=== PATIENT | female | born 1970 | race Caucasian/White ===

== ENCOUNTER 2020-02-08 05:38 | Emergency (ER) | payer BC ==
[2020-02-08] MEDS ORDERED: Ketorolac 30 MG/ML SDV IVPUSH ONE (07:17)
[2020-02-08] MEDS ORDERED: Ondansetron 4 MG/2 ML SDV IVPUSH ONE (07:17)
[2020-02-08] MEDS ORDERED: Sodium Chloride 0.9% 1,000 ML IV SCH (07:30)
[2020-02-08] MEDS ORDERED: Ketorolac 30 MG/ML SDV ONE (07:50)
[2020-02-08] MEDS ORDERED: Ondansetron 4 MG/2 ML SDV ONE (07:51)
--- NOTE | 2020-02-08 08:41 | CT ---
DATE OF SERVICE: 02/08/2020 CLINICAL DATA: Pain Unenhanced abdomen and pelvic CT: Multi slice acquisition through the abdomen and pelvis without IV or oral contrast was performed. No priors. There are atelectatic changes in the dependent portion of both lungs. The lung bases are otherwise clear. The heart size is normal. The liver is normal size. There is a 12 mm low-density lesion in the dome of the liver consistent with a benign hepatitic cyst. There is decreased attenuation of the liver adjacent to the falciform ligament consistent with focal fatty infiltration. The liver is otherwise unremarkable. The gallbladder appears normal. The spleen appears normal. The pancreas appears normal. The right and left adrenals appear normal. The right and left kidneys appear normal. No nephrocalcinosis or nephrolithiasis. No hydronephrosis or hydroureter. No evidence of ureterolithiasis. The bladder is partially fluid filled. It appears normal. The appendix is not dilated. No evidence of appendicitis. There is diverticulosis of the colon. No evidence of diverticulitis. No free air. No free fluid. No dilated loops of bowel. No adenopathy. No aortic aneurysm. MTDD
--- NOTE | 2020-02-08 14:22 | ER ---
REASON FOR EMERGENCY ROOM VISIT: Abdominal pain and nausea. HISTORY: This 49-year-old previously healthy woman came in because she is concerned about the possibility of gallstones. She states that she developed "gas pains" in her upper abdomen on . This caused her to double over at times. She took antacids and Gas-X and various other GI type of medicines. At times, she thought there was some heartburn component to it. She describes the pain as a constant ache with random intermittent sharp pains, superimposed, sometimes it seems to penetrate toward the back and shoulders bilaterally. She gets nausea with these onset of sharp pain. She only had 1 emesis since , 4 days ago and that was in the ER this morning. She had loose stools x4 yesterday, but these were not watery and she has not had a bowel movement since last evening. She does state that she had a similar episode that lasted approximately 2 hours and that occurred about 2 weeks ago, but resolved on its own. She did think that her urine looked a little dark at one point, but is cleared on its own. She denies any fever or chills, and her pain is not necessarily related to eating. PAST MEDICAL HISTORY: 1. ADHD. 2. Reactive airway disease. 3. History of hysterectomy for benign disease. MEDICATIONS: Include Adderall and albuterol. ALLERGIES: SULFA. FAMILY HISTORY: Noncontributory. REVIEW OF SYSTEMS: Pertinent positives and negatives. PHYSICAL EXAMINATION: GENERAL: She is calm, alert, and in no acute distress. VITAL SIGNS: She is afebrile. Blood pressure 134/89, heart rate is 73, respiratory rate is 18, O2 sats 98% on room air. HEENT: Head is normocephalic. Normal sclerae. No scleral icterus is noted. Oropharynx is normal. NECK: Supple. No adenopathy. CHEST: Clear to auscultation with good air exchange bilaterally and no wheezes, rhonchi, or rales. CARDIAC: Regular rate without murmur or rub. ABDOMEN: Obese, soft, and nondistended. Bowel sounds are present. She has minimal tenderness to deep palpation in the epigastrium. No hepatosplenomegaly or other palpable masses were noted. EXTREMITIES: Normal pulses. No edema. NEUROLOGIC: Grossly intact. LABORATORY DATA: CBC was within normal limits. She has no leukocytosis. A CMP was normal. She has no liver enzyme elevations. A urinalysis did show 10-20 rbc's per high-powered field with occult blood. A CT scan without contrast was done using a stone protocol and this was negative. There was no evidence of ureterolithiasis or nephrolithiasis. She had no evidence of biliary tract disease or any other significant intraabdominal pathology. Further emergency room course: Prior to the CT scan, she was given Zofran 4 mg IV x1 as well as Toradol 30 mg IV x1. She feels much better and has been almost completely pain free for the past 2 hours. IMPRESSION: Epigastric pain, etiology uncertain. PLAN: We still need to rule out cholelithiasis, even though she has had a normal CT scan. The gallbladder ultrasound is the gold standard in these cases and she certainly still could have that. The next thing to consider would be peptic ulcer disease, should her symptoms persist. We have scheduled her for an ultrasound on . I advised her to continue with antacids if she thinks they help and stay on a bland diet, avoiding fatty or spicy foods. She understands and agrees with this. All questions were answered. She will follow up with her provider after the ultrasound is done. ALEJANDRO /[id number]
== END 2020-02-08 09:15 | disposition home or self-care (01) ==
LOC: LB.ED 05:38
DX: R10.13 Epigastric pain (principal); F90.9 Attention-deficit hyperactivity disorder, unspecified type; Z79.899 Other long term (current) drug therapy; Z88.2 Allergy status to sulfonamides
CPT/HCPCS: 36415; 74176; 80053; 81001; 84484; 85025; 93005; 96374; 96375; 99284; J1885; J2405; J7030

== ENCOUNTER 2023-10-01 10:08 | Emergency (ER) | payer BC ==
[2023-10-01 11:20] LABS: CORONAVIRUS COVID-19 NAA NEGATIVE (NEGATIVE); INFLUENZA A NAA NEGATIVE (NEGATIVE); INFLUENZA B NAA NEGATIVE (NEGATIVE)
[2023-10-01 11:41] LABS: BASOPHILS ABSOLUTE AUTO 0.05 K/uL (0.02-0.10); BASOPHILS PERCENT AUTO 0.6 % (0.0-0.5); EOSINOPHILS ABSOLUTE AUTO 0.31 K/uL (0.04-0.40); EOSINOPHILS PERCENT AUTO 3.8 % (1.0-5.0); HEMATOCRIT 45.9 % (37.0-47.0); LYMPHOCYTES ABSOLUTE AUTO 1.66 K/uL (1.50-4.00); LYMPHOCYTES PERCENT AUTO 20.3 % (20.0-40.0); MEAN CORPUSCULAR HEMOGLOBIN 29.4 pg (27.0-32.0); MEAN CORPUSCULAR HGB CONC 34.9 g/dL (31.0-35.0); MEAN CORPUSCULAR VOLUME 84 fL (76-96); MEAN PLATELET VOLUME 9.2 fL (6.0-10.0); MONOCYTES ABSOLUTE AUTO 0.72 K/uL (0.20-0.80); MONOCYTES PERCENT AUTO 8.8 % (3.0-10.0); NEUTROPHILS ABSOLUTE AUTO 5.43 K/uL (2.00-7.50); NEUTROPHILS PERCENT AUTO 66.5 % (45.0-70.0); PLATELET COUNT,PLT 298 K/uL (150-500); RED BLOOD CELL COUNT 5.45 M/uL (3.80-5.80); RED CELL DISTRIBUTION WIDTH 13.1 % (11.0-16.0); WHITE BLOOD CELL COUNT,WBC 8.2 K/uL (4.0-11.0)
== END 2023-10-01 11:54 | disposition home or self-care (01) ==
LOC: LB.ED 10:08
DX: B34.9 Viral infection, unspecified (principal); F17.210 Nicotine dependence, cigarettes, uncomplicated; Z88.2 Allergy status to sulfonamides
CPT/HCPCS: 0240U; 36415; 85025; 87430; 99283